=== PATIENT | female | born 1945 | race Caucasian/White ===

== ENCOUNTER 2018-12-17 15:21 | Inpatient (IN) | payer MEDICARE, OTHER ==
--- NOTE | 2018-12-17 16:12 | RAD ---
FAP view chest. HISTORY: Preoperative chest radiograph AP view chest is obtained. The lungs are well aerated. No evidence of active intrathoracic disease se en. No evidence of effusions, pneumonia or pneumothorax seen IMPRESSION: Unremarkable AP view chest.
--- NOTE | 2018-12-17 16:14 | RAD ---
F2 views right ankle. HISTORY: Fall with ankle trauma and fracture. The right ankle is also subluxed and there is obvious f racture. AP and lateral views right ankle obtained. Images demonstrated an eversion type fracture involving the medial malleolus. The distal aspect of th e right fibula is also fractured in an oblique manner. There is talotibial subluxation. IMPRESSION: Fracture and dislocation of the medial malleolus and distal right fibula as well as sublu xation of the tibiotalar joint.
[2018-12-17] MEDS ORDERED: Ketorolac Tromethamine 30 MG/ML VIAL ONE (16:15)
[2018-12-17] MEDS ORDERED: Ketamine 50 MG/ML (10ML VIAL) ONE (16:15)
--- NOTE | 2018-12-17 16:28 | RAD ---
TWO VIEWS OF THE RIGHT TIBIA/FIBULA 12/17/18 HISTORY: Slipped and fell on gravel at [place] [employer] with ankle pain and deformity. FINDINGS: Two views of the right tibia/fibula shows a oblique fracture of the distal fibula. There is dislocati on of the ankle joints. A medial malleolus fracture is seen. No obvious fracture of the posterior mal leolus is seen. No proximal tibial or fibular fracture is seen. there is moderate degenerative change in the right kn ee. IMPRESSION: Bimalleolar right ankle fracture dislocation. POS: [facility]
[2018-12-17 16:58] LABS: #Eosinphils 0.1 thou/uL (0.0-0.7); #Lymphocytes 1.6 thou/uL (1.20-3.40); #Monocytes 0.7 thou/uL (0.11-0.59); #Neutrophils 7.1 thou/uL (1.40-6.50); %Basophils 0.4 % (0.0-1.0); %Eosinophils 0.7 % (0.0-10.0); %Lymphocytes 17.1 % (21.0-51.0); %Monocytes 7.2 % (0.0-10.0); %Neutrophils 74.6 % (42.0-75.0); Mean Corpuscular HGB CONC 33.4 g/dL (32.0-36.0); Mean Corpuscular Hemoglobin 31.7 pg (27.0-31.0); Mean Corpuscular Volume 94.7 fL (78.0-98.0); Mean Platelet Volume 8.7 fL (7.4-10.4); Platelet Count 305 thou/uL (130-400); RBC Distribution Width 11.5 % (11.5-14.5); Red Blood Cell (RBC) Count 4.43 mill/uL (4.20-5.40); White Blood Cell (WBC) Count 9.5 thou/uL (4.8-10.8)
[2018-12-17] MEDS ORDERED: Ondansetron PF 4 MG/2 ML Vial ONE (17:21)
[2018-12-17 17:23] LABS: ALT (SGPT) 22 U/L (8-55); AST (SGOT) 10 U/L (5-34); Alkaline Phosphatase 73 U/L (40-150); Anion Gap 14 mmol/L (10-20); BUN (Urea Nitrogen) 27 mg/dL (9.8-20.1); Bilirubin, Total 0.4 mg/dL (0.2-1.2); Calc. Creatinine Clearance 0 mL/min (70-130); Calcium 9.4 mg/dL (7.8-10.44); Carbon Dioxide 24 mmol/L (23-31); Chloride 106 mmol/L (98-107); Estimated GFR-MDRD 62; Globulin 2.9 g/dL (2.4-3.5); Glucose 99 mg/dL (83-110); Potassium 3.7 mmol/L (3.5-5.1); Protein, Total 6.9 g/dL (6.0-8.3); Sodium 140 mmol/L (136-145)
--- NOTE | 2018-12-17 18:34 | RAD ---
RIGHT ANKLE TWO VIEWS: 12/17/18 HISTORY: Left ankle fracture. Reduction. COMPARISON: Earlier exam on the same date. FINDINGS: There is significant interval improvement and alignment of the ankle mortise with approximately 7 mm lateral subluxation of all fragments remaining. Distal fibular and medial malleolar fractures are aga in demonstrated. Overlying fiberglass splint. IMPRESSION: Significant interval improvement in alignment of the bimalleolar right ankle fracture. POS: [facility]
--- NOTE | 2018-12-17 19:22 | HP ---
REQUESTING PHYSICIAN: Dr. Li. ATTENDING SURGEON: Dr. Keenan. CONSULTATIONS: Orthopedics, Dr. Kam. HISTORY OF PRESENT ILLNESS: The patient reports having a ground level fall after tripping over uneven ground. She denies hitting her head or having any loss of consciousness. She was brought by ground EMS to the emergency department to undergo evaluation for a deformity of her right ankle. In the emergency department, she underwent evaluation and examination and was noted to have a bimalleolar fracture-dislocation of her right lower extremity, which after conscious sedation was reduced and splinted, and we were asked to admit the patient and obtain Orthopedic consultation. ALLERGIES: PENICILLIN. CURRENT MEDICATIONS: 1. Lisinopril. 2. Levothyroxine. 3. Progesterone. PAST MEDICAL HISTORY: 1. Hypothyroidism. 2. Hypertension. PAST SURGICAL HISTORY: 1. Back surgery. 2. Right foot surgery. SOCIAL HISTORY: The patient denies drug or tobacco use and occasional alcohol. 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 REVIEW OF SYSTEMS: A 10-point review of systems is negative as otherwise stated. PHYSICAL EXAMINATION: VITAL SIGNS: Blood pressure 164/80, heart rate 84, respirations 18, oxygen saturation 98% on room air, and temperature is 98.6. GENERAL: The patient is resting comfortably in bed. She is awake, alert, and oriented x3. Mccloud Coma Scale is 15. HEENT: Head is normocephalic and atraumatic. Eyes, extraocular motion intact. PERRLA bilaterally. Ears are atraumatic without discharge. Nose, atraumatic without discharge. Oropharynx is clear. NECK: Nontender. Trachea is midline. No JVD. CHEST: Clear to auscultation with good inspiratory and expiratory effort. HEART: Regular rate and rhythm. ABDOMEN: Soft, flat, nontender with active bowel sounds. Pelvis is stable. EXTREMITIES: Neurovascularly intact x4. Right lower extremity upon my initial exam showed the right ankle deformity, and at the time of this dictation, she had been reduced and appeared anatomic, and her extremity was splinted and neurovascularly intact. BACK: Atraumatic and nontender. LABORATORY FINDINGS: White blood cell count 9.5, hemoglobin 14.0, hematocrit 42.0, and platelets 305. Sodium 140, potassium 3.7, chloride 106, CO2 of 24, BUN 27, creatinine 0.89, and glucose 99. LFTs are unremarkable. RADIOGRAPHIC REPORT: AP chest shows unremarkable AP chest radiograph. Views of the right tibia and fibula show a bimalleolar right ankle fracture-dislocation. Radiographs of the right ankle prior to reduction show fracture and dislocation of the medial malleolus and distal right fibula as well as subluxation of the tibiotalar joint. Postreduction films show significant interval improvement in the alignment of the bimalleolar right ankle fracture. ASSESSMENT AND PLAN: 1. Status post ground level fall. 2. Right ankle bimalleolar fracture-dislocation, status post closed reduction under conscious sedation. 3. Acute pain secondary to above. 4. History of hypertension. 5. History of hypothyroidism. PLAN: Plan will be to admit the patient to the surgical floor. She will be made n.p.o. after midnight. We will do pain control, pulmonary toilet, gastritis and mechanical VTE prophylaxis. The discussion with Dr. Kam will be that the patient undergoes her operative procedure tomorrow. The evaluation, examination, laboratory, and radiographic findings will be discussed with Dr. Keenan after this dictation. Job ID: [id number]
[2018-12-17 19:39] VITALS: BMI 25.9
[2018-12-17] MEDS ORDERED: Ondansetron ODT 4 MG TAB SL PRN (19:42)
[2018-12-17] MEDS ORDERED: Ondansetron PF 4 MG/2 ML Vial IVP PRN ×2 (19:42→19:46)
[2018-12-17] MEDS ORDERED: HYDROcodone/Acetaminophen 5/325 mg Tablet PO PRN ×2 (19:42)
[2018-12-17] MEDS ORDERED: Acetaminophen 325 MG TAB PO PRN (19:42)
[2018-12-17] MEDS ORDERED: hydrALAZINE 20 MG/ML VIAL SLOW IVP PRN (19:46)
[2018-12-17] MEDS ORDERED: Ondansetron ODT 4 MG TAB PO PRN (19:46)
[2018-12-17] MEDS ORDERED: Dextrose 5% in Water 1,000 ML IV PRN (19:46)
[2018-12-17] MEDS ORDERED: Dextrose 50% Abboject 50 ML SYRINGE SLOW IVP PRN (19:46)
[2018-12-17] MEDS ORDERED: Morphine 4 MG/ML VIAL SLOW IVP PRN (19:46)
[2018-12-17] MEDS ORDERED: Morphine 2 MG/ML SYRINGE SLOW IVP PRN (19:46)
[2018-12-17] MEDS: Acetaminophen 1,000 MG in Premix Bag 1 BAG IVPB SCH (20:38)
[2018-12-17] MEDS: Famotidine 20 MG TAB PO SCH (20:38)
[2018-12-17] MEDS: Ketorolac Tromethamine 30 MG/ML VIAL IVP SCH (23:33)
[2018-12-17] MEDS: Sodium Chloride 0.9% 1,000 ML IV SCH (23:35)
[2018-12-18] MEDS: Acetaminophen 1,000 MG in Premix Bag 1 BAG IVPB SCH ×3 (02:16→13:44)
[2018-12-18 05:30] LABS: #Eosinphils 0.1 thou/uL (0.0-0.7); #Lymphocytes 2.6 thou/uL (1.20-3.40); #Neutrophils 5.5 thou/uL (1.40-6.50); %Basophils 0.5 % (0.0-1.0); %Eosinophils 1.3 % (0.0-10.0); %Lymphocytes 28.1 % (21.0-51.0); %Monocytes 11.1 % (0.0-10.0); Hemoglobin 12.3 g/dL (12.0-16.0); Mean Corpuscular HGB CONC 33.8 g/dL (32.0-36.0); Mean Corpuscular Hemoglobin 32.1 pg (27.0-31.0); Mean Platelet Volume 8.8 fL (7.4-10.4); Platelet Count 256 thou/uL (130-400); RBC Distribution Width 11.6 % (11.5-14.5); Red Blood Cell (RBC) Count 3.82 mill/uL (4.20-5.40); White Blood Cell (WBC) Count 9.2 thou/uL (4.8-10.8)
[2018-12-18 05:48] LABS: Anion Gap 10 mmol/L (10-20); BUN (Urea Nitrogen) 25 mg/dL (9.8-20.1); Calc. Creatinine Clearance 60 mL/min (70-130); Calcium 8.4 mg/dL (7.8-10.44); Carbon Dioxide 25 mmol/L (23-31); Chloride 109 mmol/L (98-107); Estimated GFR-MDRD 61; Glucose 91 mg/dL (83-110); Potassium 3.9 mmol/L (3.5-5.1); Sodium 140 mmol/L (136-145)
[2018-12-18] MEDS: Ketorolac Tromethamine 30 MG/ML VIAL IVP SCH ×2 (06:37→12:10)
[2018-12-18] MEDS: Sodium Chloride 0.9% 1,000 ML IV SCH (06:37)
--- NOTE | 2018-12-18 07:20 | CON ---
DATE OF CONSULTATION: 12/17/2018 BRIEF HISTORY OF PRESENT ILLNESS: The patient is a 73-year-old lady who earlier on the 17 of December, sustained a ground level fall after stepping on an uneven ground. She denies loss of consciousness. Upon initial evaluation in the emergency room at [place], she was found to have a gross deformity of the right ankle. After slight delay, the ankle was reduced and placed in a splint with orthopedic consultation requested and Trauma admission also requested. I examined the patient in her room in the emergency room of [facility]. She is awake and alert with at bedside. PAST MEDICAL HISTORY: Remarkable for hypothyroidism and hypertension. PAST SURGICAL HISTORY: Foot surgery, right and past history of spine surgery, lumbar spine with fusion and instrumentation. MEDICATIONS: Include levothyroxine, lisinopril and progesterone. ALLERGIES: PENICILLIN. FAMILY HISTORY: Noncontributory. SOCIAL HISTORY: She lives with her . She denies drug or tobacco use. She does consume alcohol socially. REVIEW OF SYSTEMS: No recent fevers, chills, or sweats. No chest pain or shortness of breath. Denies numbness or tingling in the extremities. PHYSICAL EXAMINATION: VITAL SIGNS: She is found to have a temperature of 98.6, heart rate of 84, respiratory rate of 18, and and blood pressure 164/80. GENERAL: She is awake and alert, in her hospital bed. HEENT: Atraumatic and normocephalic. NECK: Neck is nontender with supple range of motion. HEART: Shows regular rate and rhythm without murmur. LUNGS: Clear to auscultation bilaterally with good breath sounds. Chest wall nontender. ABDOMEN: Flat, soft with normal bowel sounds. EXTREMITIES: Remarkable for bilateral upper extremities that are atraumatic with intact sensation subjectively. Left lower extremity also atraumatic with intact subjective sensation distally. The right lower extremity remarkable for atraumatic hip and knee. The ankle is remarkable for gross deformity with lateral displacement of the hind foot from under the plafond. The medial skin is tented and does show some abrasion and trauma secondary to this displacement. She is able to move her toes, but with pain at the ankle. Her foot compartments and lower leg compartments are soft to touch. She has intact subjective sensation to light touch. LABORATORY DATA: She was found to have a white count of 9.5, hematocrit of 42, and 305,000 platelets. DIAGNOSTIC STUDIES: X-rays; pre reduction x-ray of the ankle remarkable for a bimalleolar ankle fracture with gross displacement. While I was in the emergency room, the ER physicians did sedate and reduce the fracture, which does show improvement in alignment, but still lateral displacement of the talus under the tibia. ASSESSMENT: A 73-year-old lady status post ground level fall sustaining right ankle fracture dislocation, now provisionally reduced and splinted. PLAN: At this time, we will proceed to the operating room for a open reduction and internal fixation procedure. Prior to her sedation for closed reduction, I discussed with the patient risks and benefits of the procedure. Risks include, but are not limited to bleeding, infection, nerve injury, DVT, PE, arthritis, malunion, nonunion, loss of limb or life. The patient appears to understand and does wish to proceed. We will keep her n.p.o. after midnight. Job ID: [id number]
[2018-12-18] MEDS: Famotidine 20 MG TAB PO SCH ×2 (09:06→21:09)
[2018-12-18] MEDS ORDERED: Midazolam HCl 2 mg/2 ml Vial ONE (11:44)
[2018-12-18] MEDS ORDERED: Fentanyl 100 MCG/2 ML VIAL ONE ×3 (11:45→14:24)
[2018-12-18] MEDS ORDERED: Dexamethasone 4 mg/ml Vial ONE (11:45)
[2018-12-18] MEDS ORDERED: Levofloxacin 500 mg/D5W 100 ml Premix Bag ONE (12:32)
[2018-12-18] MEDS ORDERED: Clindamycin/D5W 900 mg/50 ml Premix Bag ONE (12:32)
--- NOTE | 2018-12-18 13:09 | PRG ---
DATE OF SERVICE: SUBJECTIVE: The patient is hospital day 2, status post ground-level fall when she sustained a right bimalleolar fracture dislocation, for which underwent closed reduction in the emergency department yesterday. She has been n.p.o. after midnight awaiting her surgical procedure today. The patient is also planned to be evaluated by Physical Therapy and begin crutch training in an effort to allow her to be discharged postoperatively. The patient had no issues overnight. Her pain is controlled. OBJECTIVE: VITAL SIGNS: Temperature 98.3, heart rate 57, blood pressure 136/65, respirations 16, and oxygen saturation 96% on room air. GENERAL: The patient is resting comfortably in bed. She is awake, alert, and oriented x3. Sara Coma Scale is 15. HEENT: Unremarkable. LUNGS: Clear to auscultation with good inspiratory and expiratory effort. HEART: Regular rate and rhythm. ABDOMEN: Soft, flat, and nontender with hyperactive bowel sounds. EXTREMITIES: Neurovascularly intact x4. Right lower extremity has a clean, dry, and intact splint in place. LABORATORY DATA: White blood cell count 9.2, hemoglobin 12.3, hematocrit 36.3, and platelets 256. Sodium 140, potassium 3.9, chloride 109, CO2 of 25, BUN 25, creatinine 0.91, and glucose 91. There are no x-rays to review this morning. ASSESSMENT AND PLAN: 1. Status post ground-level fall. 2. Status post closed reduction of right ankle bimalleolar fracture dislocation, awaiting open reduction and internal fixation of same. 3. Acute pain secondary to above, improved. Plan will be to continue supportive care, physical and occupational therapy, crutch training, and await final placement decision. This evaluation was done with Dr. Keenan this morning during rounds. Job ID: [id number]
[2018-12-18] MEDS ORDERED: Ondansetron HCl/PF 4 MG/2 ML Vial IVP PRN (14:45)
[2018-12-18] MEDS ORDERED: Promethazine HCl 25 MG/ML VIAL SLOW IVP PRN (14:45)
[2018-12-18] MEDS ORDERED: Promethazine HCl 25 MG/ML VIAL IM PRN (14:45)
[2018-12-18] MEDS ORDERED: Cyclobenzaprine 10 MG TAB PO PRN (15:23)
[2018-12-18] MEDS ORDERED: traMADol HCl 50 MG TAB PO PRN ×2 (15:23)
--- NOTE | 2018-12-18 17:03 | OP ---
DATE OF PROCEDURE: 12/18/2018 PREOPERATIVE DIAGNOSIS: Right trimalleolar ankle fracture dislocation. POSTOPERATIVE DIAGNOSIS: Right trimalleolar ankle fracture dislocation. PROCEDURE PERFORMED: Open reduction and internal fixation of right medial and lateral malleoli. ANESTHESIA: General. ENVIRONMENTAL EPIDEMIOLOGIST: Favian Severino PA-C. TOURNIQUET TIME: 60 minutes at 300 mmHg. IMPLANTS: Synthes system was used with an 8-hole 1/3 tubular plate for the lateral malleolus and two 4.0-mm partially-threaded cancellous screws for the medial malleolus. COMPLICATIONS: None. DRAINS: None. SPECIMEN: None. OUTCOME: Near-anatomic alignment. INDICATIONS FOR PROCEDURE: The patient is a 73-year-old lady, status post ground level fall sustaining a fracture dislocation of her right ankle. An attempt at closed reduction was performed in the emergency room, and a partial reduction was achieved; however, the patient still has displacement that is felt now to be in need of open reduction and internal fixation. I have discussed with the patient risks and benefits of the procedure. Risks include, but are not limited to bleeding, infection, nerve injury, DVT, PE, ankle stiffness, ankle arthritis, or loss of limb or life. They appear to understand and do wish to proceed. Informed consent has been obtained. DESCRIPTION OF PROCEDURE: The patient was brought to the operating room, and a time-out was performed followed by induction of general anesthesia. Next, the patient was positioned supine on the OR table, and a sterile prep and drape was performed of the right lower extremity. The limb was then exsanguinated with Esmarch bandage. Tourniquet was inflated to 300 mmHg. A vertical incision was then made over the distal fibula. After the skin was sharply incised, dissection was carried down bluntly to the underlying fractured bone. The fracture hematoma was lavaged from the wound, and using minimal subperiosteal dissection, the edges of the fracture were fully exposed. Next, the fracture which was comminuted was reduced and held in place with a bone tenaculum. This was followed by positioning of an 8-hole pre-contoured 1/3 tubular plate along the lateral cortex of the distal fibula. Once positioned, it was affixed to the bone with a combination of cortical screws proximally and cancellous screws distally. Due to the comminution, interfragmentary screw fixation was not feasible. Once stabilized, AP, lateral, and mortise images were obtained, that showed anatomic alignment of the distal fibula. Next, a second small incision was made medially overlying the medial malleolus. After the skin was sharply incised, dissection was carried down bluntly taking care to spare the saphenous vein. Once the fracture edges were exposed, the fracture was reduced and held in place with a bone tenaculum. This was followed by passage of two 4.0-mm partially-threaded cancellous screws from the tip of the medial malleolus obliquely across the fracture line into the distal tibial metaphysis. Once completed, final AP and lateral C-arm images were obtained, that showed anatomic alignment of the ankle with just a very small slightly displaced posterior malleolar fragment. The two wounds were then irrigated with normal saline and closed in layers with 0 Vicryl deep followed by 2-0 Vicryl and nylon for the skin. The lateral wound was then infiltrated with 0.5% Marcaine, as was the medial wound. Next, a Xeroform gauze, Webril, and a well-padded fiberglass splint were applied to the ankle. The tourniquet was let down at the completion of dressing, and the patient was transferred to recovery room in stable condition. There were no complications. She tolerated the procedure well. Job ID: [id number]
[2018-12-18] MEDS: Acetaminophen 500 MG TAB PO SCH (17:35)
[2018-12-18] MEDS: Ibuprofen 600 MG TAB PO SCH (21:09)
[2018-12-18] MEDS: Clindamycin/D5W 900 MG in Premix Bag 1 BAG IVPB SCH (21:09)
[2018-12-19] MEDS ORDERED: HYDROcodone/Acetaminophen 10/325 mg Tablet PO PRN ×2 (00:01)
[2018-12-19] MEDS: Acetaminophen 500 MG TAB PO SCH ×2 (01:56→06:19)
[2018-12-19] MEDS: Clindamycin/D5W 900 MG in Premix Bag 1 BAG IVPB SCH (06:19)
[2018-12-19] MEDS: Ibuprofen 600 MG TAB PO SCH (06:19)
[2018-12-19] MEDS: Famotidine 20 MG TAB PO SCH (08:59)
[2018-12-19] MEDS ORDERED: Thyroid 60 MG TAB PO SCH (09:00)
[2018-12-19] MEDS ORDERED: Lisinopril/Hydrochlorothiazide 20/25 mg Tablet PO SCH (09:00)
--- NOTE | 2018-12-19 11:40 | RAD ---
"PRELIMINARY REPORT" RIGHT ANKLE 3 VIEWS HISTORY: ORIF right ankle, bimalleolar fracture. FINDINGS: Three spot fluoroscopic intraoperative images of the right ankle demonstrate interval reduction and i nternal fixation of the bimalleolar fracture seen on the exam of previous day. A plate with screws frias s been placed in the distal fibula and 2 screws through the medial malleolus. Anatomic alignment has been restored. Transcribed Date/Time: 12/19/2018 11:40 AM
[2018-12-19 11:59] VITALS: BP 132/63; TEMP 98.3
[2018-12-19] MEDS ORDERED: Gabapentin 100 MG CAP PO SCH (15:00)
[2018-12-19] MEDS ORDERED: Aspirin 81 mg Enteric Coated Tablet PO SCH (21:00)
--- NOTE | 2018-12-20 20:53 | EKG ---
Test Reason : Blood Pressure : / mmHG Vent. Rate : 071 BPM Atrial Rate : 071 BPM P-R Int : 148 ms QRS Dur : 076 ms QT Int : 398 ms P-R-T Axes : 041 007 006 degrees QTc Int : 432 ms Normal sinus rhythm Minimal voltage criteria for LVH, may be normal variant Cannot rule out Anterior infarct , age undetermined Abnormal ECG Confirmed by BRET ALEJO DO ([id number]), field map editor HELEN HERNANDEZ ([id number]) on 12/20/2018 8:53:15 PM Referred By: Confirmed By:BRET ALEJO DO
== END 2018-12-19 16:01 | disposition home or self-care (01) | DRG 494 ==
LOC: ERS 15:21 → SURG A 15:30 → OBSVTOIN 19:46
PROVIDERS: ADMIT Specialist; ATTEND Specialist
PROC: 0QSJXZZ Reposition Right Fibula, External Approach (ICD-10-PCS; 2018-12-17)
PROC: 0QSGXZZ Reposition Right Tibia, External Approach (ICD-10-PCS; 2018-12-17)
PROC: 0QSJ04Z Reposition Right Fibula with Internal Fixation Device, Open Approach (ICD-10-PCS; principal; 2018-12-18)
PROC: 0QSG04Z Reposition Right Tibia with Internal Fixation Device, Open Approach (ICD-10-PCS; 2018-12-18)
DX: S82.841A Displaced bimalleolar fracture of right lower leg, initial encounter for closed fracture (principal); E03.9 Hypothyroidism, unspecified; I10 Essential (primary) hypertension; Z88.0 Allergy status to penicillin; Z98.890 Other specified postprocedural states; W01.0XXA Fall on same level from slipping, tripping and stumbling without subsequent striking against object, initial encounter
CPT/HCPCS: 27840; 36415; 71045; 76000; 80048; 80053; 85025; 93005; 96365; 96375; 99156; C1713; G0390; J0131; J1100; J1885; J1956; J2250; J2405; J3010; J3490